=== PATIENT | male | born 1935 | race Caucasian/White ===

== ENCOUNTER 2018-07-02 17:34 | Inpatient (IN) ==
[2018-07-02 18:22] LABS: Basophils % 0.4 % (0.0-0.8); Eosinophils % 0.1 % (0.00-10.9); Hematocrit 37.4 VOL% (42.0-52.0); Hemoglobin 11.9 GM/DL (14.0-18.0); Immature Granulocytes % 0.6 %; Immature Granulocytes Absolute 0.06 #; Lymphocytes # 1.6 10*3/uL (1.4-4.0); Lymphocytes % 17.5 % (21.2-54.2); Mean Corpuscular HGB Conc 31.8 GM/DL (32-36); Mean Corpuscular Hemoglobin 28 PG (27-34); Mean Corpuscular Volume 86.8 FL (87-102); Mean Platelet Volume 10.8 FL (9.6-12.0); Monocytes # 0.7 10*3/uL (0.11-0.8); Neutrophils # 6.9 10*3/uL (1.4-7.4); Neutrophils % 74.4 % (38.7-73.9); Platelet Count 232 T/CUMM (130-400); Red Blood Count 4.31 MC/CUMM (3.8-5.5); Red Cell Distribution Width 15.5 % (9.3-17.3); White Blood Count 9.3 T/CUMM (4-12)
[2018-07-02 18:31] LABS: INR 1.1
[2018-07-02 18:44] LABS: Albumin 3.6 G/DL (3.4-5.0); Bilirubin,Total 0.8 MG/DL (0.2-1.0); Calcium 8.4 MG/DL (8.5-10.1); Osmolality,Calculated 284.5 MOS/KG (273-304); Potassium 4.4 MMOL/L (3.5-5.1); Total Protein 7.1 G/DL (6.4-8.3)
[2018-07-02 19:27] LABS: Apearance,Urine CLEAR (Clear); Bacteria,Urine Occasional /HPF (Few); Bilirubin,Urine Negative (Negative); Blood, Urine Negative (Negative); Glucose,Urine (UA) Negative (Negative); Ketones,Urine Negative (Negative); Mucus,Urine Occasional /LPF (Occasional); Nitrite,Urine Negative (Negative); Protein,Urine Negative; RBC,Urine 4 /HPF (0-4); Urine Color Yellow (Yellow); Urine Specific Gravity 1.026 (1.001-1.035); WBC,Urine 2 /HPF (0-6)
[2018-07-02] MEDS ORDERED: FUROSEMIDE 40 MG/4 ML VIAL IV STA (19:34)
[2018-07-02] MEDS ORDERED: ONDANSETRON 4 MG/2 ML VIAL IV PRN (20:03)
[2018-07-02] MEDS ORDERED: MAGNESIUM HYDROXIDE SUSP 30 ML UDCUP PO PRN (20:06)
[2018-07-02] MEDS ORDERED: ENOXAPARIN 40 MG/0.4 ML SYRINGE SUBCUT SCH (20:30)
[2018-07-02] MEDS ORDERED: ASPIRIN 325 MG TABLET PO STA (20:50)
[2018-07-02] MEDS: ENOXAPARIN 80 MG/0.8 ML SYRINGE SUBCUT SCH (21:43)
[2018-07-02] MEDS: GABAPENTIN 100 MG CAPSULE PO SCH (22:19)
[2018-07-02] MEDS: MIRTAZAPINE 15 MG TABLET PO SCH (22:20)
[2018-07-02] MEDS: PANTOPRAZOLE 40 MG TABLET PO SCH (22:20)
[2018-07-03 01:16] LABS: Basophils # 0.1 10*3/uL (0.0-0.2); Basophils % 0.5 % (0.0-0.8); Eosinophils % 0.1 % (0.00-10.9); Hematocrit 38.7 VOL% (42.0-52.0); Immature Granulocytes % 0.8 %; Immature Granulocytes Absolute 0.08 #; Lymphocytes # 1.5 10*3/uL (1.4-4.0); Lymphocytes % 13.9 % (21.2-54.2); Mean Corpuscular Hemoglobin 27 PG (27-34); Mean Corpuscular Volume 87.8 FL (87-102); Mean Platelet Volume 10.6 FL (9.6-12.0); Monocytes # 0.7 10*3/uL (0.11-0.8); Monocytes % 6.8 % (1.7-12.7); Neutrophils # 8.2 10*3/uL (1.4-7.4); Neutrophils % 77.9 % (38.7-73.9); Platelet Count 233 T/CUMM (130-400); Red Blood Count 4.41 MC/CUMM (3.8-5.5); Red Cell Distribution Width 15.5 % (9.3-17.3); White Blood Count 10.5 T/CUMM (4-12)
[2018-07-03 01:21] LABS: Risk Ratio 2.58
[2018-07-03] MEDS: ENOXAPARIN 80 MG/0.8 ML SYRINGE SUBCUT SCH ×2 (09:00→21:05)
[2018-07-03] MEDS ORDERED: ASPIRIN 325 MG TABLET PO SCH (09:00)
[2018-07-03] MEDS: RIVASTIGMINE 4.6 MG/24 HR PATCH TRANSDERM SCH (09:01)
[2018-07-03] MEDS: FUROSEMIDE 40 MG/4 ML VIAL IV SCH ×2 (09:01→15:43)
[2018-07-03] MEDS: QUEtiapine 25 MG TABLET PO SCH (09:03)
[2018-07-03] MEDS: METOPROLOL SUCCINATE XL 25 MG TABLET PO SCH (09:03)
[2018-07-03] MEDS: SERTRALINE 50 MG TABLET PO SCH (09:03)
[2018-07-03] MEDS: GABAPENTIN 100 MG CAPSULE PO SCH ×2 (09:03→21:05)
[2018-07-03] MEDS: FINASTERIDE 5 MG TABLET PO SCH (09:03)
[2018-07-03] MEDS: MIRTAZAPINE 15 MG TABLET PO SCH (21:05)
[2018-07-03] MEDS: PANTOPRAZOLE 40 MG TABLET PO SCH (21:05)
[2018-07-03] MEDS: ATORVASTATIN 20 MG TABLET PO SCH (21:05)
[2018-07-04 05:38] LABS: Basophils % 0.5 % (0.0-0.8); Eosinophils # 0.1 10*3/uL (0.0-0.87); Eosinophils % 0.6 % (0.00-10.9); Hematocrit 34.4 VOL% (42.0-52.0); Hemoglobin 10.7 GM/DL (14.0-18.0); Immature Granulocytes % 0.5 %; Immature Granulocytes Absolute 0.04 #; Lymphocytes # 2.1 10*3/uL (1.4-4.0); Lymphocytes % 27.3 % (21.2-54.2); Mean Corpuscular HGB Conc 31.1 GM/DL (32-36); Mean Corpuscular Hemoglobin 27 PG (27-34); Mean Corpuscular Volume 87.1 FL (87-102); Mean Platelet Volume 10.5 FL (9.6-12.0); Monocytes # 0.8 10*3/uL (0.11-0.8); Monocytes % 10.1 % (1.7-12.7); Neutrophils # 4.7 10*3/uL (1.4-7.4); Platelet Count 207 T/CUMM (130-400); Red Blood Count 3.95 MC/CUMM (3.8-5.5); Red Cell Distribution Width 15.2 % (9.3-17.3); White Blood Count 7.7 T/CUMM (4-12)
[2018-07-04 06:11] LABS: Calcium 8.6 MG/DL (8.5-10.1); Osmolality,Calculated 282.5 MOS/KG (273-304)
[2018-07-04] MEDS ORDERED: POTASSIUM CHLORIDE 20 MEQ TABLET PO ONE (07:49)
[2018-07-04] MEDS: GABAPENTIN 100 MG CAPSULE PO SCH ×2 (08:53→20:54)
[2018-07-04] MEDS: ASPIRIN EC 81 MG TABLET PO SCH (08:53)
[2018-07-04] MEDS: RIVASTIGMINE 4.6 MG/24 HR PATCH TRANSDERM SCH (08:54)
[2018-07-04] MEDS: METOPROLOL SUCCINATE XL 25 MG TABLET PO SCH (08:54)
[2018-07-04] MEDS: MAGNESIUM OXIDE 400 MG TABLET PO SCH ×2 (08:54→20:54)
[2018-07-04] MEDS: ENOXAPARIN 80 MG/0.8 ML SYRINGE SUBCUT SCH ×2 (08:54→20:52)
[2018-07-04] MEDS: FUROSEMIDE 40 MG/4 ML VIAL IV SCH ×2 (08:54→15:45)
[2018-07-04] MEDS: QUEtiapine 25 MG TABLET PO SCH (08:54)
[2018-07-04] MEDS: ISOSORBIDE MONONITRATE 30 MG TABLET PO SCH (08:54)
[2018-07-04] MEDS: SERTRALINE 50 MG TABLET PO SCH (08:54)
[2018-07-04] MEDS: SPIRONOLACTONE 25 MG TABLET PO SCH (08:54)
[2018-07-04] MEDS: FINASTERIDE 5 MG TABLET PO SCH (08:54)
[2018-07-04] MEDS: POTASSIUM CHLORIDE 20 MEQ TABLET PO SCH ×2 (08:57→20:54)
[2018-07-04] MEDS: POTASSIUM CHLORIDE 20 MEQ TABLET PO PRN ×2 (11:23→15:45)
[2018-07-04] MEDS: MIRTAZAPINE 15 MG TABLET PO SCH (20:54)
[2018-07-04] MEDS: ZALEPLON 5 MG CAPSULE PO PRN (20:54)
[2018-07-04] MEDS: PANTOPRAZOLE 40 MG TABLET PO SCH (20:54)
[2018-07-04] MEDS: ATORVASTATIN 20 MG TABLET PO SCH (20:54)
[2018-07-05 05:14] LABS: Basophils % 0.5 % (0.0-0.8); Eosinophils # 0.1 10*3/uL (0.0-0.87); Eosinophils % 1.2 % (0.00-10.9); Hematocrit 35.4 VOL% (42.0-52.0); Hemoglobin 11.3 GM/DL (14.0-18.0); Immature Granulocytes % 0.5 %; Immature Granulocytes Absolute 0.04 #; Lymphocytes # 2.2 10*3/uL (1.4-4.0); Lymphocytes % 27.8 % (21.2-54.2); Mean Corpuscular HGB Conc 31.9 GM/DL (32-36); Mean Corpuscular Hemoglobin 28 PG (27-34); Mean Corpuscular Volume 86.6 FL (87-102); Mean Platelet Volume 10.6 FL (9.6-12.0); Monocytes # 0.7 10*3/uL (0.11-0.8); Monocytes % 9.4 % (1.7-12.7); Neutrophils # 4.7 10*3/uL (1.4-7.4); Neutrophils % 60.6 % (38.7-73.9); Platelet Count 212 T/CUMM (130-400); Red Blood Count 4.09 MC/CUMM (3.8-5.5); Red Cell Distribution Width 15.3 % (9.3-17.3); White Blood Count 7.8 T/CUMM (4-12)
[2018-07-05 05:24] LABS: Calcium 8.5 MG/DL (8.5-10.1); Osmolality,Calculated 285.4 MOS/KG (273-304); Potassium 3.9 MMOL/L (3.5-5.1)
[2018-07-05 05:25] LABS: Calcium 8.5 MG/DL (8.5-10.1); Osmolality,Calculated 283.5 MOS/KG (273-304); Potassium 3.8 MMOL/L (3.5-5.1)
[2018-07-05] MEDS: MAGNESIUM OXIDE 400 MG TABLET PO SCH ×2 (09:32→21:05)
[2018-07-05] MEDS: ENOXAPARIN 80 MG/0.8 ML SYRINGE SUBCUT SCH ×2 (09:32→21:06)
[2018-07-05] MEDS: QUEtiapine 25 MG TABLET PO SCH (09:33)
[2018-07-05] MEDS: GABAPENTIN 100 MG CAPSULE PO SCH ×2 (09:33→21:05)
[2018-07-05] MEDS: FUROSEMIDE 20 MG TABLET PO SCH (09:33)
[2018-07-05] MEDS: POTASSIUM CHLORIDE 20 MEQ TABLET PO SCH ×2 (09:33→21:04)
[2018-07-05] MEDS: FINASTERIDE 5 MG TABLET PO SCH (09:33)
[2018-07-05] MEDS: ISOSORBIDE MONONITRATE 30 MG TABLET PO SCH (09:33)
[2018-07-05] MEDS: ASPIRIN EC 81 MG TABLET PO SCH (09:33)
[2018-07-05] MEDS: SERTRALINE 50 MG TABLET PO SCH (09:34)
[2018-07-05] MEDS: SPIRONOLACTONE 25 MG TABLET PO SCH (09:34)
[2018-07-05] MEDS: METOPROLOL SUCCINATE XL 25 MG TABLET PO SCH ×2 (09:34→21:23)
[2018-07-05] MEDS: RIVASTIGMINE 4.6 MG/24 HR PATCH TRANSDERM SCH (09:37)
[2018-07-05] MEDS: LOSARTAN 25 MG TABLET PO SCH ×2 (11:59→21:22)
[2018-07-05] MEDS: ROSUVASTATIN 20 MG TABLET PO SCH (14:18)
[2018-07-05] MEDS: PANTOPRAZOLE 40 MG TABLET PO SCH (21:05)
[2018-07-05] MEDS: MIRTAZAPINE 15 MG TABLET PO SCH (21:05)
[2018-07-06 04:41] LABS: Basophils % 0.3 % (0.0-0.8); Eosinophils # 0.1 10*3/uL (0.0-0.87); Eosinophils % 0.6 % (0.00-10.9); Hematocrit 34.6 VOL% (42.0-52.0); Immature Granulocytes % 0.3 %; Immature Granulocytes Absolute 0.03 #; Lymphocytes # 1.9 10*3/uL (1.4-4.0); Lymphocytes % 20.7 % (21.2-54.2); Mean Corpuscular HGB Conc 31.8 GM/DL (32-36); Mean Corpuscular Hemoglobin 27 PG (27-34); Mean Corpuscular Volume 86.1 FL (87-102); Mean Platelet Volume 10.6 FL (9.6-12.0); Monocytes # 0.7 10*3/uL (0.11-0.8); Neutrophils # 6.6 10*3/uL (1.4-7.4); Neutrophils % 71.1 % (38.7-73.9); Platelet Count 215 T/CUMM (130-400); Red Blood Count 4.02 MC/CUMM (3.8-5.5); Red Cell Distribution Width 15.2 % (9.3-17.3); White Blood Count 9.3 T/CUMM (4-12)
[2018-07-06 04:42] LABS: Calcium 8.5 MG/DL (8.5-10.1); Osmolality,Calculated 280.7 MOS/KG (273-304); Potassium 4.1 MMOL/L (3.5-5.1)
[2018-07-06] MEDS ORDERED: POTASSIUM CHLORIDE RIDER 10 MEQ in PREMIX 1 EACH IV PRN (08:06)
[2018-07-06] MEDS ORDERED: MAGNESIUM SULF RIDER 2 GM in PREMIX 1 EACH IV PRN (08:06)
[2018-07-06] MEDS ORDERED: SODIUM CHLORIDE 0.45% 1,000 ML IV SCH (08:30)
[2018-07-06] MEDS: GABAPENTIN 100 MG CAPSULE PO SCH ×2 (09:07→21:34)
[2018-07-06] MEDS: ENOXAPARIN 80 MG/0.8 ML SYRINGE SUBCUT SCH ×2 (09:08→21:35)
[2018-07-06] MEDS: FUROSEMIDE 20 MG TABLET PO SCH (09:08)
[2018-07-06] MEDS: ASPIRIN EC 81 MG TABLET PO SCH (09:08)
[2018-07-06] MEDS: POTASSIUM CHLORIDE 20 MEQ TABLET PO SCH ×2 (09:08→21:35)
[2018-07-06] MEDS: QUEtiapine 25 MG TABLET PO SCH (09:08)
[2018-07-06] MEDS: ROSUVASTATIN 20 MG TABLET PO SCH (09:08)
[2018-07-06] MEDS: RIVASTIGMINE 4.6 MG/24 HR PATCH TRANSDERM SCH (09:08)
[2018-07-06] MEDS: FINASTERIDE 5 MG TABLET PO SCH (09:08)
[2018-07-06] MEDS: METOPROLOL SUCCINATE XL 25 MG TABLET PO SCH ×2 (09:08→21:35)
[2018-07-06] MEDS: MAGNESIUM OXIDE 400 MG TABLET PO SCH ×2 (09:08→21:34)
[2018-07-06] MEDS: SERTRALINE 50 MG TABLET PO SCH (09:11)
[2018-07-06] MEDS ORDERED: diphenhydrAMINE CAP 25 MG CAPSULE PO ONE (12:00)
[2018-07-06] MEDS ORDERED: DIAZEPAM 5 MG TABLET PO ONE (12:00)
[2018-07-06] MEDS ORDERED: LIDOCAINE 1% 20 ML VIAL ONE (15:37)
[2018-07-06] MEDS ORDERED: MIDAZOLAM 2 MG/2 ML VIAL ONE (15:38)
[2018-07-06] MEDS ORDERED: HYDROmorphone 2 MG/1 ML VIAL ONE (15:38)
[2018-07-06] MEDS ORDERED: HYDROmorphone 2 MG/1 ML VIAL IV PRN (17:05)
[2018-07-06] MEDS ORDERED: ACETAMINOPHEN 325 MG TABLET PO PRN (17:05)
[2018-07-06] MEDS: FUROSEMIDE 40 MG/4 ML VIAL IV SCH (17:43)
[2018-07-06] MEDS: LOSARTAN 25 MG TABLET PO SCH (21:34)
[2018-07-06] MEDS: PANTOPRAZOLE 40 MG TABLET PO SCH (21:35)
[2018-07-06] MEDS: MIRTAZAPINE 15 MG TABLET PO SCH (21:35)
[2018-07-07 04:50] LABS: Basophils % 0.4 % (0.0-0.8); Eosinophils # 0.1 10*3/uL (0.0-0.87); Eosinophils % 1.5 % (0.00-10.9); Hematocrit 37.2 VOL% (42.0-52.0); Hemoglobin 11.8 GM/DL (14.0-18.0); Immature Granulocytes % 0.5 %; Immature Granulocytes Absolute 0.04 #; Lymphocytes # 2.5 10*3/uL (1.4-4.0); Mean Corpuscular HGB Conc 31.7 GM/DL (32-36); Mean Corpuscular Hemoglobin 28 PG (27-34); Mean Corpuscular Volume 86.9 FL (87-102); Mean Platelet Volume 10.5 FL (9.6-12.0); Monocytes # 0.7 10*3/uL (0.11-0.8); Monocytes % 8.7 % (1.7-12.7); Neutrophils # 4.6 10*3/uL (1.4-7.4); Neutrophils % 57.9 % (38.7-73.9); Platelet Count 223 T/CUMM (130-400); Red Blood Count 4.28 MC/CUMM (3.8-5.5); Red Cell Distribution Width 15.1 % (9.3-17.3); White Blood Count 7.9 T/CUMM (4-12)
[2018-07-07 05:08] LABS: Calcium 8.8 MG/DL (8.5-10.1)
[2018-07-07] MEDS: METOPROLOL SUCCINATE XL 25 MG TABLET PO SCH ×2 (09:35→21:11)
[2018-07-07] MEDS: POTASSIUM CHLORIDE 20 MEQ TABLET PO SCH ×2 (09:36→21:10)
[2018-07-07] MEDS: GABAPENTIN 100 MG CAPSULE PO SCH ×2 (09:36→21:10)
[2018-07-07] MEDS: MAGNESIUM OXIDE 400 MG TABLET PO SCH ×2 (09:36→21:10)
[2018-07-07] MEDS: SERTRALINE 50 MG TABLET PO SCH (09:36)
[2018-07-07] MEDS: FUROSEMIDE 40 MG/4 ML VIAL IV SCH (09:37)
[2018-07-07] MEDS: ROSUVASTATIN 20 MG TABLET PO SCH (09:37)
[2018-07-07] MEDS: FINASTERIDE 5 MG TABLET PO SCH (09:37)
[2018-07-07] MEDS: SPIRONOLACTONE 25 MG TABLET PO SCH (09:37)
[2018-07-07] MEDS: ASPIRIN EC 81 MG TABLET PO SCH (09:37)
[2018-07-07] MEDS: QUEtiapine 25 MG TABLET PO SCH (09:37)
[2018-07-07] MEDS: LOSARTAN 25 MG TABLET PO SCH (09:37)
[2018-07-07] MEDS: ISOSORBIDE MONONITRATE 30 MG TABLET PO SCH (09:37)
[2018-07-07] MEDS: ENOXAPARIN 80 MG/0.8 ML SYRINGE SUBCUT SCH ×3 (09:38→21:16)
[2018-07-07] MEDS: RIVASTIGMINE 4.6 MG/24 HR PATCH TRANSDERM SCH (09:38)
[2018-07-07] MEDS ORDERED: SODIUM CHLORIDE 0.9% 1,000 ML IV SCH (12:00)
[2018-07-07 12:27] LABS: Osmolality,Calculated 280.7 MOS/KG (273-304); Potassium 3.9 MMOL/L (3.5-5.1)
[2018-07-07] MEDS: MIRTAZAPINE 15 MG TABLET PO SCH (21:10)
[2018-07-07] MEDS: PANTOPRAZOLE 40 MG TABLET PO SCH (21:10)
[2018-07-08] MEDS ORDERED: FUROSEMIDE 40 MG/4 ML VIAL IV SCH (08:00)
[2018-07-08] MEDS: RIVASTIGMINE 4.6 MG/24 HR PATCH TRANSDERM SCH (09:01)
[2018-07-08] MEDS: POTASSIUM CHLORIDE 20 MEQ TABLET PO SCH ×2 (09:02→21:41)
[2018-07-08] MEDS: MAGNESIUM OXIDE 400 MG TABLET PO SCH ×2 (09:02→21:41)
[2018-07-08] MEDS: GABAPENTIN 100 MG CAPSULE PO SCH ×2 (09:02→21:41)
[2018-07-08] MEDS: ASPIRIN EC 81 MG TABLET PO SCH (09:02)
[2018-07-08] MEDS: METOPROLOL SUCCINATE XL 25 MG TABLET PO SCH ×2 (09:02→21:40)
[2018-07-08] MEDS: FINASTERIDE 5 MG TABLET PO SCH (09:03)
[2018-07-08] MEDS: ROSUVASTATIN 20 MG TABLET PO SCH (09:03)
[2018-07-08] MEDS: SERTRALINE 50 MG TABLET PO SCH (09:03)
[2018-07-08] MEDS: QUEtiapine 25 MG TABLET PO SCH (09:03)
[2018-07-08 12:09] LABS: Calcium 8.4 MG/DL (8.5-10.1); Osmolality,Calculated 278.5 MOS/KG (273-304); Potassium 4.2 MMOL/L (3.5-5.1)
[2018-07-08] MEDS: ENOXAPARIN 80 MG/0.8 ML SYRINGE SUBCUT SCH (13:10)
[2018-07-08] MEDS: FUROSEMIDE 40 MG TABLET PO SCH (16:38)
[2018-07-08] MEDS ORDERED: RIVAROXABAN 20 MG TABLET PO SCH (17:00)
[2018-07-08] MEDS: ZALEPLON 5 MG CAPSULE PO PRN (21:40)
[2018-07-08] MEDS: MIRTAZAPINE 15 MG TABLET PO SCH (21:40)
[2018-07-08] MEDS: LOSARTAN 25 MG TABLET PO SCH (21:40)
[2018-07-08] MEDS: PANTOPRAZOLE 40 MG TABLET PO SCH (21:41)
[2018-07-09 06:31] LABS: Basophils % 0.4 % (0.0-0.8); Eosinophils # 0.2 10*3/uL (0.0-0.87); Eosinophils % 2.8 % (0.00-10.9); Hematocrit 37.2 VOL% (42.0-52.0); Hemoglobin 11.8 GM/DL (14.0-18.0); Immature Granulocytes % 0.6 %; Immature Granulocytes Absolute 0.04 #; Lymphocytes # 1.5 10*3/uL (1.4-4.0); Mean Corpuscular HGB Conc 31.7 GM/DL (32-36); Mean Corpuscular Hemoglobin 27 PG (27-34); Mean Corpuscular Volume 86.1 FL (87-102); Monocytes # 0.5 10*3/uL (0.11-0.8); Neutrophils # 4.5 10*3/uL (1.4-7.4); Neutrophils % 67.2 % (38.7-73.9); Platelet Count 220 T/CUMM (130-400); Red Blood Count 4.32 MC/CUMM (3.8-5.5); White Blood Count 6.7 T/CUMM (4-12)
[2018-07-09 06:32] LABS: Calcium 8.5 MG/DL (8.5-10.1); Osmolality,Calculated 275.7 MOS/KG (273-304); Potassium 3.7 MMOL/L (3.5-5.1)
[2018-07-09 06:49] LABS: Calcium 8.5 MG/DL (8.5-10.1); Osmolality,Calculated 273.8 MOS/KG (273-304); Potassium 3.7 MMOL/L (3.5-5.1)
[2018-07-09] MEDS: FUROSEMIDE 40 MG TABLET PO SCH (08:55)
[2018-07-09] MEDS: GABAPENTIN 100 MG CAPSULE PO SCH (08:55)
[2018-07-09] MEDS: SERTRALINE 50 MG TABLET PO SCH (08:55)
[2018-07-09] MEDS: LOSARTAN 25 MG TABLET PO SCH (08:56)
[2018-07-09] MEDS: RIVASTIGMINE 4.6 MG/24 HR PATCH TRANSDERM SCH (08:56)
[2018-07-09] MEDS: ROSUVASTATIN 20 MG TABLET PO SCH (08:56)
[2018-07-09] MEDS: ASPIRIN EC 81 MG TABLET PO SCH (08:56)
[2018-07-09] MEDS: MAGNESIUM OXIDE 400 MG TABLET PO SCH (08:56)
[2018-07-09] MEDS: QUEtiapine 25 MG TABLET PO SCH (08:56)
[2018-07-09] MEDS: FINASTERIDE 5 MG TABLET PO SCH (08:56)
[2018-07-09] MEDS: POTASSIUM CHLORIDE 20 MEQ TABLET PO SCH (08:56)
[2018-07-09] MEDS: METOPROLOL SUCCINATE XL 25 MG TABLET PO SCH (10:31)
[2018-07-09 12:08] VITALS: BP 90/53
== END 2018-07-09 14:03 | DRG 286 ==
LOC: EDUNIT# → EDBD → N.ED 17:34 → N.EDINP 17:34 → SUATTDRO 20:03 → N.2E 21:03 → SUATTDRO 07-05 14:33
PROVIDERS: ADMIT Hospitalist; ATTEND Internal Medicine

== ENCOUNTER 2018-08-10 10:33 | Inpatient (IN) ==
[2018-08-10 12:03] LABS: Basophils % 0.4 % (0.0-0.8); Eosinophils # 0.2 10*3/uL (0.0-0.87); Eosinophils % 2.4 % (0.00-10.9); Hematocrit 36.2 VOL% (42.0-52.0); Hemoglobin 11.5 GM/DL (14.0-18.0); Immature Granulocytes % 0.4 %; Immature Granulocytes Absolute 0.03 #; Lymphocytes # 1.5 10*3/uL (1.4-4.0); Lymphocytes % 20.5 % (21.2-54.2); Mean Corpuscular HGB Conc 31.8 GM/DL (32-36); Mean Corpuscular Volume 86.2 FL (87-102); Mean Platelet Volume 10.7 FL (9.6-12.0); Monocytes % 9.9 % (1.7-12.7); Neutrophils % 66.4 % (38.7-73.9); Platelet Count 156 T/CUMM (130-400); Red Cell Distribution Width 16.9 % (9.3-17.3); White Blood Count 7.4 T/CUMM (4-12)
[2018-08-10 12:11] LABS: INR 1.1; Partial Thromboplastin Time 32.8 SECS (0-40)
[2018-08-10 12:28] LABS: Apearance,Urine CLEAR (Clear); Bilirubin,Urine Negative (Negative); Blood, Urine Negative (Negative); Glucose,Urine (UA) Negative (Negative); Ketones,Urine Negative (Negative); Nitrite,Urine Negative (Negative); Protein,Urine Negative; RBC,Urine 1 /HPF (0-4); Urine Color Yellow (Yellow); Urine Specific Gravity 1.008 (1.001-1.035); Urine Urobilinogen < 2.0 EU/DL (0.2-1.0); WBC,Urine <1 /HPF (0-6)
[2018-08-10 12:35] LABS: Albumin 3.5 G/DL (3.4-5.0); Bilirubin,Total 0.8 MG/DL (0.2-1.0); Calcium 8.6 MG/DL (8.5-10.1); Osmolality,Calculated 275.8 MOS/KG (273-304); Total Protein 7.1 G/DL (6.4-8.3)
[2018-08-10] MEDS ORDERED: ACETAMINOPHEN 325 MG TABLET PO PRN ×3 (13:52→17:34)
[2018-08-10] MEDS ORDERED: ZALEPLON 5 MG CAPSULE PO PRN ×2 (13:57→17:31)
[2018-08-10] MEDS ORDERED: ALUMINUM/MAGNES/SIMETH MAX STR 30 ML UDCUP PO PRN ×2 (13:57→17:31)
[2018-08-10] MEDS ORDERED: MAGNESIUM HYDROXIDE SUSP 30 ML UDCUP PO PRN ×2 (13:57→17:31)
[2018-08-10] MEDS ORDERED: methylPREDNISolone SOD SUC 125 MG/2 ML VIAL IV STA (13:58)
[2018-08-10] MEDS: FUROSEMIDE 40 MG TABLET PO SCH (16:05)
[2018-08-10] MEDS ORDERED: RIVAROXABAN 20 MG TABLET PO SCH (17:00)
[2018-08-10 17:12] LABS: Calcium 8.8 MG/DL (8.5-10.1); Osmolality,Calculated 276.7 MOS/KG (273-304)
[2018-08-10 18:16] LABS: Basophils % 0.4 % (0.0-0.8); Eosinophils # 0.2 10*3/uL (0.0-0.87); Eosinophils % 2.6 % (0.00-10.9); Hematocrit 38.2 VOL% (42.0-52.0); Immature Granulocytes % 0.5 %; Immature Granulocytes Absolute 0.05 #; Lymphocytes # 2.3 10*3/uL (1.4-4.0); Lymphocytes % 24.8 % (21.2-54.2); Mean Corpuscular HGB Conc 31.4 GM/DL (32-36); Mean Corpuscular Volume 86.6 FL (87-102); Monocytes % 8.5 % (1.7-12.7); Neutrophils % 63.2 % (38.7-73.9); Platelet Count 176 T/CUMM (130-400); Red Blood Count 4.41 MC/CUMM (3.8-5.5); White Blood Count 9.4 T/CUMM (4-12)
[2018-08-10 18:59] LABS: Albumin 3.8 G/DL (3.4-5.0); Bilirubin,Total 0.7 MG/DL (0.2-1.0); Calcium 8.8 MG/DL (8.5-10.1); Risk Ratio 2.63; Thyroid Stimulating Hormone 1.11 uIU/ml (0.358-3.74); Total Protein 7.5 G/DL (6.4-8.3); VLDL CHOLESTEROL 14.6 MG/DL
[2018-08-10 19:00] LABS: Macrocytosis Slight; Polychromasia Slight
[2018-08-10 19:01] LABS: Folate > 24.0 NG/ML (5.4-24.0); Platelet Estimate Adequate; Vitamin B12 159 PG/ML (211-911)
[2018-08-10] MEDS: METOPROLOL SUCCINATE XL 25 MG TABLET PO SCH (20:43)
[2018-08-10] MEDS: LOSARTAN 25 MG TABLET PO SCH (20:43)
[2018-08-10] MEDS: MAGNESIUM OXIDE 400 MG TABLET PO SCH (20:44)
[2018-08-10] MEDS: GABAPENTIN 100 MG CAPSULE PO SCH (20:44)
[2018-08-10] MEDS: DICLOFENAC 1% GEL 100 GM TUBE TOP SCH (20:44)
[2018-08-10] MEDS ORDERED: MIRTAZAPINE 15 MG TABLET PO SCH (21:00)
[2018-08-11 04:57] LABS: Basophils % 0.3 % (0.0-0.8); Eosinophils # 0.2 10*3/uL (0.0-0.87); Eosinophils % 3.2 % (0.00-10.9); Hematocrit 35.2 VOL% (42.0-52.0); Hemoglobin 11.3 GM/DL (14.0-18.0); Immature Granulocytes % 0.3 %; Immature Granulocytes Absolute 0.02 #; Lymphocytes % 34.3 % (21.2-54.2); Mean Corpuscular HGB Conc 32.1 GM/DL (32-36); Mean Corpuscular Volume 85.2 FL (87-102); Mean Platelet Volume 11.2 FL (9.6-12.0); Monocytes % 8.5 % (1.7-12.7); Neutrophils % 53.4 % (38.7-73.9); Platelet Count 151 T/CUMM (130-400); Red Blood Count 4.13 MC/CUMM (3.8-5.5); Red Cell Distribution Width 16.7 % (9.3-17.3); White Blood Count 5.9 T/CUMM (4-12)
[2018-08-11] MEDS ORDERED: PANTOPRAZOLE 40 MG TABLET PO SCH (06:30)
[2018-08-11] MEDS ORDERED: SERTRALINE 50 MG TABLET PO SCH (09:00)
[2018-08-11] MEDS ORDERED: FINASTERIDE 5 MG TABLET PO SCH (09:00)
[2018-08-11] MEDS ORDERED: ASPIRIN EC 81 MG TABLET PO SCH (09:00)
[2018-08-11] MEDS ORDERED: RIVASTIGMINE 4.6 MG/24 HR PATCH TRANSDERM SCH (09:00)
[2018-08-11] MEDS ORDERED: CYANOCOBALAMIN 1000 MCG/1 ML VIAL SUBCUT SCH (09:00)
[2018-08-11] MEDS ORDERED: QUEtiapine 25 MG TABLET PO SCH (09:00)
[2018-08-11] MEDS ORDERED: ROSUVASTATIN 20 MG TABLET PO SCH (09:00)
[2018-08-11] MEDS: DICLOFENAC 1% GEL 100 GM TUBE TOP SCH (10:32)
[2018-08-11] MEDS: LOSARTAN 25 MG TABLET PO SCH (10:33)
[2018-08-11] MEDS: GABAPENTIN 100 MG CAPSULE PO SCH (10:33)
[2018-08-11] MEDS: METOPROLOL SUCCINATE XL 25 MG TABLET PO SCH (10:34)
[2018-08-11] MEDS: FUROSEMIDE 40 MG TABLET PO SCH (10:34)
[2018-08-11] MEDS: MAGNESIUM OXIDE 400 MG TABLET PO SCH (10:35)
[2018-08-11 12:12] VITALS: BP 98/67
== END 2018-08-11 14:10 | disposition hospice, home (50) | DRG 554 ==
LOC: EDBD → EDUNIT# → N.ED 10:33 → N.EDINP 10:33 → N.2E 15:15
PROVIDERS: ADMIT Hospitalist; ATTEND Hospitalist

== ENCOUNTER 2022-04-09 13:19 | Observation (INO) ==
[2022-04-09] MEDS ORDERED: SODIUM CHLORIDE 0.9% 500 ML IV STA (14:18)
[2022-04-09 14:42] LABS: Basophils % 0.5 % (0.0-0.8); Eosinophils # 0.3 10*3/uL (0.0-0.87); Eosinophils % 2.9 % (0.00-10.9); Hematocrit 32.4 VOL% (42.0-52.0); Hemoglobin 10.1 GM/DL (14.0-18.0); Immature Granulocytes % 0.6 %; Immature Granulocytes Absolute 0.05 #; Lymphocytes # 1.5 10*3/uL (1.4-4.0); Lymphocytes % 17.6 % (21.2-54.2); Mean Corpuscular HGB Conc 31.2 GM/DL (32-36); Mean Corpuscular Volume 82.4 FL (87-102); Monocytes # 0.7 10*3/uL (0.11-0.8); Monocytes % 7.9 % (1.7-12.7); Neutrophils % 70.5 % (38.7-73.9); Platelet Count 230 T/CUMM (130-400); Red Blood Count 3.93 MC/CUMM (3.8-5.5); Red Cell Distribution Width 17.6 % (9.3-17.3); White Blood Count 8.5 T/CUMM (4-12)
[2022-04-09 15:10] LABS: Alanine Aminotransferase 12 U/L (16-61); Albumin 3.2 G/DL (3.4-5.0); Alkaline Phosphatase 86 U/L (45-117); Aspartate Amino Transferase 17 U/L (0-37); Bilirubin,Total < 0.39 MG/DL (0.20-1.00); Blood Urea Nitrogen 37 MG/DL (7-18); Calcium 8.3 MG/DL (8.5-10.1); Carbon Dioxide 24 MMOL/L (21-32); Chloride 106 MMOL/L (98-107); Glucose 94 MG/DL (74-106); Potassium 4.2 MMOL/L (3.5-5.1); Sodium 136 MMOL/L (136-145); Total Protein 6.3 G/DL (6.4-8.2)
[2022-04-09] MEDS ORDERED: ONDANSETRON 4 MG/2 ML VIAL IV PRN (15:58)
[2022-04-09] MEDS ORDERED: ACETAMINOPHEN 325 MG TABLET PO PRN (15:58)
[2022-04-09] MEDS ORDERED: ZALEPLON 5 MG CAPSULE PO PRN (15:58)
[2022-04-09 16:01] LABS: Hyaline Casts,Urine 9 /LPF (0-3); Mucus,Urine Occasional /LPF (Occasional); RBC,Urine 2 /HPF (0-4); Squamous Epithelial Cell,Urine Occasional /HPF (0-10)
[2022-04-09 16:02] LABS: Glucose,Urine (UA) Negative (Negative); Ketones,Urine Negative (Negative); Nitrite,Urine Negative (Negative); Protein,Urine Negative (Negative); Urine Appearance Clear (Clear); Urine Color Yellow (Yellow); Urine Specific Gravity < 1.005 (1.001-1.035); Urine pH 5.5 (4.5-8.0)
[2022-04-09 16:03] LABS: Bilirubin,Urine Negative (Negative); Blood, Urine Trace mg/dL (Negative); Urine Urobilinogen 0.2 eU/dL (<2.0)
[2022-04-09] MEDS ORDERED: MAGNESIUM HYDROXIDE SUSP 30 ML UDCUP PO PRN (16:17)
[2022-04-09] MEDS ORDERED: DIPHENOXYLATE/ATROPINE 2.5-0.025 MG TABLET PO PRN (16:17)
[2022-04-09] MEDS ORDERED: ALUMINUM/MAGNES/SIMETH MAX STR 30 ML UDCUP PO PRN (18:00)
[2022-04-09] MEDS: SODIUM CHLORIDE 0.9% 1,000 ML IV SCH (18:01)
[2022-04-09] MEDS ORDERED: ROSUVASTATIN 20 MG TABLET PO SCH (21:00)
[2022-04-09] MEDS ORDERED: DICLOFENAC 1% GEL 100 GM TUBE TOP PRN (21:00)
[2022-04-09] MEDS ORDERED: guaiFENesin 200 MG/10 ML UDCUP PO PRN (21:00)
[2022-04-09] MEDS ORDERED: HYDROCORTISONE 1% CREAM 28 GM TUBE TOP PRN (21:00)
[2022-04-09] MEDS ORDERED: MIRTAZAPINE 15 MG TABLET PO SCH (21:00)
[2022-04-09] MEDS: GABAPENTIN 300 MG CAPSULE PO SCH (21:01)
[2022-04-10 07:08] LABS: Basophils % 0.3 % (0.0-0.8); Eosinophils # 0.2 10*3/uL (0.0-0.87); Eosinophils % 2.8 % (0.00-10.9); Hematocrit 32.4 VOL% (42.0-52.0); Hemoglobin 10.1 GM/DL (14.0-18.0); Immature Granulocytes % 0.3 %; Immature Granulocytes Absolute 0.02 #; Lymphocytes # 1.7 10*3/uL (1.4-4.0); Lymphocytes % 21.1 % (21.2-54.2); Mean Corpuscular HGB Conc 31.2 GM/DL (32-36); Mean Corpuscular Volume 82.7 FL (87-102); Mean Platelet Volume 10.2 FL (9.6-12.0); Monocytes # 0.5 10*3/uL (0.11-0.8); Monocytes % 6.7 % (1.7-12.7); Neutrophils % 68.8 % (38.7-73.9); Platelet Count 205 T/CUMM (130-400); Red Blood Count 3.92 MC/CUMM (3.8-5.5); Red Cell Distribution Width 17.7 % (9.3-17.3); White Blood Count 7.9 T/CUMM (4-12)
[2022-04-10 07:33] LABS: Albumin 3.2 G/DL (3.4-5.0); Bilirubin,Total 0.4 MG/DL (0.20-1.00); Calcium 8.8 MG/DL (8.5-10.1); Osmolality,Calculated 286.3 MOS/KG (273-304); Potassium 4.6 MMOL/L (3.5-5.1); Total Protein 6.6 G/DL (6.4-8.2)
[2022-04-10] MEDS ORDERED: ASPIRIN EC 81 MG TABLET PO SCH (09:00)
[2022-04-10] MEDS ORDERED: QUEtiapine 25 MG TABLET PO SCH (09:00)
[2022-04-10] MEDS ORDERED: RIVAROXABAN 15 MG TABLET PO SCH (09:00)
[2022-04-10] MEDS ORDERED: MAGNESIUM OXIDE 400 MG TABLET PO SCH (09:00)
[2022-04-10] MEDS ORDERED: TAMSULOSIN 0.4 MG CAPSULE PO SCH (09:00)
[2022-04-10] MEDS ORDERED: SERTRALINE 50 MG TABLET PO SCH (09:00)
[2022-04-10] MEDS ORDERED: FLUTICASONE 50 MCG NASAL SPRAY 16 GM BOTTLE BOTH NARES SCH (09:00)
[2022-04-10] MEDS ORDERED: PANTOPRAZOLE 40 MG TABLET PO SCH (09:00)
[2022-04-10] MEDS ORDERED: FINASTERIDE 5 MG TABLET PO SCH (09:00)
[2022-04-10] MEDS: GABAPENTIN 300 MG CAPSULE PO SCH (09:07)
[2022-04-10 11:46] VITALS: BP 108/53
[2022-04-10] MEDS: SODIUM CHLORIDE 0.9% 1,000 ML IV SCH (12:55)
[2022-04-30] MEDS ORDERED: CYANOCOBALAMIN 1000 MCG/1 ML VIAL IM SCH (09:00)
== END 2022-04-10 14:20 | disposition home health service (06) ==
LOC: EDBD → EDUNIT# → N.ED 13:19 → N.EDINP 13:19 → SUATTDRO 15:58 → N.EDINP 17:01 → N.2W 17:41
PROVIDERS: ADMIT Internal Medicine; ATTEND Internal Medicine